=== PATIENT | female | born 1975 | race Caucasian/White ===

== ENCOUNTER → 2020-11-22 | Outpatient (CLI) | payer OTHER | LOC: KOH-I 09:17 | DX: M25.512 Pain in left shoulder (principal); S43.112A Subluxation of left acromioclavicular joint, initial encounter | CPT/HCPCS: 73030 ==

== ENCOUNTER → 2021-07-20 | Outpatient (CLI) | payer OTHER | LOC: KOH-I 08:59 | DX: S92.341A Displaced fracture of fourth metatarsal bone, right foot, initial encounter for closed fracture (principal); S82.401A Unspecified fracture of shaft of right fibula, initial encounter for closed fracture | CPT/HCPCS: 73610; 73630 ==

== ENCOUNTER → 2021-08-17 | Outpatient (CLI) | payer OTHER | LOC: KOH-I 08:56 | DX: S82.891A Other fracture of right lower leg, initial encounter for closed fracture (principal); M79.89 Other specified soft tissue disorders; X58.XXXA Exposure to other specified factors, initial encounter | CPT/HCPCS: 73610; 73630 ==

== ENCOUNTER → 2021-08-24 | Outpatient (CLI) | payer OTHER | LOC: EMI 10:00 | DX: S92.344D Nondisplaced fracture of fourth metatarsal bone, right foot, subsequent encounter for fracture with routine healing (principal); S82.831D Other fracture of upper and lower end of right fibula, subsequent encounter for closed fracture with routine healing | CPT/HCPCS: 73721 ==